=== PATIENT | male | born 1960 | race Two or more races ===

== ENCOUNTER 2017-11-19 22:48 | Emergency (ER) | payer MEDICAID ==
[~2017-11-19] VITALS: Ht 170.2 cm; Wt 100.0 kg
[~2017-11-19 22:48] MED LIST: GLIP10TA10 PO; LISI2.5T47 PO; METF100P3 MC
[2017-11-20 04:14] VITALS: BP 122/82
== END 2017-11-20 05:20 | disposition home or self-care (01) ==
LOC: ER 22:48
DX: S82.091A Other fracture of right patella, initial encounter for closed fracture (principal); Y35.893A Legal intervention involving other specified means, suspect injured, initial encounter; Y93.89 Activity, other specified; Y92.512 Supermarket, store or market as the place of occurrence of the external cause
CPT/HCPCS: 70450; 73562; 99284